=== PATIENT | female | born 1960 | race Caucasian/White ===

== ENCOUNTER 2020-02-03 08:10 | Emergency (ER) | payer OTHER, SELFPAY ==
[2020-02-03 08:17] VITALS: BP 128/69; PULSE 66; RESP 16; TEMP 36.7; O2SAT 99
--- NOTE | 2020-02-03 08:19 | ED.EYEPROB ---
HPI - Eye Problem General Chief complaint: Eye Problems Stated complaint: knot under eye Time Seen by Provider: 02/03/20 08:19 Source: patient and RN notes reviewed History of Present Illness HPI Narrative: Patient is a 59-year-old female presents the urgent care with complaints of a bump on the inside of the left lower eyelid. Patient states that it started last Thursday and she was seen Thursday at [facility] and given bacitracin gel. Patient states that she has been using it as directed but the areas not resolved. Patient states it has not really gotten any worse . States that it seems to be irritated. Denies any changes in vision. Denies any trauma or known injury to the left eye. No other acute complaints. No acute distress noted. Patient read the plan of care. Related Data Allergies Allergy/AdvReac Type Severity Reaction Status Date / Time buspirone Allergy Unknown TONGUE Verified 02/03/20 08:26 SWELLS gabapentin Allergy Unknown Verified 02/03/20 08:26 Review of Systems Review of Systems: Narrative: CONSTITUTIONAL: Denies fever, chills, or sweats. EYES: Reports of a irritated red bump under the lower left eyelid ENT: Denies rhinorrhea, congestion, sore throat, or otalgia. CARDIOVASCULAR: Denies chest pain, palpitations, or edema. RESPIRATORY: Denies cough or dyspnea. GASTROINTESTINAL: Denies abdominal pain, nausea, vomiting, or diarrhea. GENITOURINARY: Denies dysuria or hematuria. SKIN: Denies rash or itching. MUSCULOSKELETAL: Denies back pain, joint pain, or myalgia. NEUROLOGIC: Denies headache, numbness, or weakness. All other systems reviewed are negative, except as documented in HPI. PMFSH Comments At the time of my signature, I reviewed and agree with the nursing past medical, surgical, social, and family history. There is no relevant family history pertinent to the patient complaint. Exam Narrative: Exam Narrative: GENERAL: This is a well-nourished, well-developed patient, in no apparent distress. HEAD: normocephalic, atraumatic. EYES: PERRL. Sclera clear/white. Vision is grossly intact. Mild redness noted to the lower lid of the left eye with a notable inner nodular erythemic hordeolum versus chalazion EARS: External ears normal NOSE: External nose normal with no obvious nasal discharge, THROAT: Mucous membranes moist NECK: Neck supple SKIN: warm, intact with no suspicious lesions or rash, good texture and turgor. NEURO: awake, alert, and oriented to person, place and time. There were no obvious focal neurologic abnormalities. EXTREMITIES: No clubbing, cyanosis, or edema. Course Vital Signs Vital signs: Vital Signs Temperature 98.1 F 02/03/20 08:17 Pulse Rate 66 02/03/20 08:17 Respiratory Rate 16 02/03/20 08:17 Blood Pressure 128/69 02/03/20 08:17 Pulse Oximetry 99 02/03/20 08:17 Temperature 98.1 F 02/03/20 08:17 Pulse Rate 66 02/03/20 08:17 Respiratory Rate 16 02/03/20 08:17 Blood Pressure 128/69 02/03/20 08:17 Pulse Oximetry 99 02/03/20 08:17 reviewed MDM - Eye Problem MDM Narrative Medical decision making narrative: Advised the patient to use eyedrops to the left eye as directed. May stop using the bacitracin gel. Area may take a week to 1 month to resolve. However, be aware of signs and symptoms of worsening condition such as increased redness, swelling, itchiness, drainage from the left eye, changes in vision. If the above symptoms occur?follow-up in the emergency room. Use warm compress several times throughout the day. The area is likely an inner hordeolum/stye versus chalazion. May require further follow-up with an nutritional yeast supervisor. Follow-up with your PCP within 2 to 5 days if her worsening symptoms or failure to improve. Differential Diagnosis Differential diagnosis: Likely corneal abrasion, conjunctivitis, acute iritis, periorbital cellulitis and subconjunctival hemorrhage Critical Care Time Critical Care Time Critical Care Time: No Discharge
== END 2020-02-03 08:35 | disposition home or self-care (01) ==
PROVIDERS: Emergency Provider Nurse Practitioner Family; PCP Internal Medicine
DX: H00.025 Hordeolum internum left lower eyelid (principal)
CPT/HCPCS: 99213; G0463

== ENCOUNTER 2021-08-05 09:56 | Emergency (ER) | payer OTHER, SELFPAY ==
[2021-08-05 10:20] VITALS: BP 108/70; PULSE 81; RESP 18; TEMP 37.4; O2SAT 96
--- NOTE | 2021-08-05 11:30 | ED.URI ---
HPI - URI/Sore Throat General Chief Complaint: Upper Respiratory Infection Stated Complaint: Sore throat, cough, sinus Time Seen by Provider: 08/05/21 11:25 Source: patient and RN notes reviewed Mode of arrival: ambulatory Limitations: no limitations History of Present Illness HPI Narrative: 60-year-old female presents concern for 3-day history of sore throat, sinus drainage, shortness of breath, weakness, coughing, fatigue, low energy. Reports she is taking Zicam and salt water gargles. Reports she has been vaccinated for Covid. She denies any known sick contacts. MD elicited complaint: cough Related Data Home Medications Medication Instructions Recorded Confirmed fluoxetine 40 mg PO BID 08/05/21 08/05/21 ibuprofen 800 mg PO TID 08/05/21 08/05/21 lorazepam 0.5 mg PO BID 08/05/21 08/05/21 omeprazole 20 mg PO DAILY 08/05/21 08/05/21 simvastatin 40 mg PO DAILY 08/05/21 08/05/21 trazodone 50 mg PO HS 08/05/21 08/05/21 Allergies Allergy/AdvReac Type Severity Reaction Status Date / Time buspirone Allergy Unknown TONGUE Verified 08/05/21 10:27 SWELLS gabapentin Allergy Unknown Verified 08/05/21 10:27 Review of Systems Review of Systems: CONSTITUTIONAL: Reports malaise, fatigue. Denies chills, sweats, or fever. EYES: Denies visual changes, redness, or discharge. ENT: Reports rhinorrhea, congestion, sore throat. Denies sinus pain, otalgia CARDIOVASCULAR: Denies chest pain, palpitations, or edema. RESPIRATORY: Reports cough. Denies dyspnea. GASTROINTESTINAL: Denies abdominal pain, nausea, vomiting, diarrhea SKIN: Denies rash or itching. MUSCULOSKELETAL: Reports myalgia. NEUROLOGIC: Denies headache. All systems reviewed & are unremarkable except as noted in HPI and below PMFSH Comments At time of signature, agree with nursing past medical, surgical, social and family history. There is no relevant family history pertinent to the presenting complaint Exam Narrative: GENERAL: Well-appearing, well-nourished, and in no acute distress. HEAD: Normocephalic EYES: PERRLA, conjunctivae clear ENT: Nares clear, clear discharge. Mucous membranes moist. TM pearly harden with dull light reflex bilaterally; no tragal tenderness. Oropharynx erythematous without lesions. Tonsils not enlarged and without exudate, no drooling, no hoarseness, no trismus, uvula midline. NECK: Supple. No lymphadenopathy CHEST: Clear to auscultation, breath sounds equal. No wheezing, rhonchi, rales, or stridor. No respiratory distress, speaks in full sentences. HEART: Regular rate and rhythm. No murmur heard. SKIN: Warm, dry, no rash. NEURO: Alert and oriented x3. PSYCH: Normal mood and affect Course Course Emergency Course: Patient is aware of diagnosis, understands and agrees to treatment plan. Anticipatory guidance given. Patient agrees to follow-up as directed and is aware of reasons to seek care at the emergency department. Portions of this record may have been created with voice recognition software Vital Signs Vital signs: Vital Signs Temperature 99.4 F 08/05/21 10:20 Pulse Rate 81 08/05/21 10:20 Respiratory Rate 18 08/05/21 10:20 Blood Pressure 108/70 08/05/21 10:20 Pulse Oximetry 96 08/05/21 10:20 Temperature 99.4 F 08/05/21 10:20 Pulse Rate 81 08/05/21 10:20 Respiratory Rate 18 08/05/21 10:20 Blood Pressure 108/70 08/05/21 10:20 Pulse Oximetry 96 08/05/21 10:20 Reviewed. MDM - URI/Sore Throat MDM Narrative Medical decision making narrative: Differential diagnosis considered: Chavez virus, strep pharyngitis, allergic rhinitis, upper respiratory tract infection, sinusitis, rhinosinusitis, nasopharyngitis. viral pharyngitis, otitis media, otitis externa, pneumonia, bronchitis, viral cough syndrome, viral syndrome, and influenza. Exam findings show no acute concerns or changes; patient is non-toxic appearing and is in no distress. Patient is appropriate for outpatient treatment and follow-up. Lab Data L
[2021-08-06 20:04] LABS: SARS-CoV-2 RNA PCR Negative
== END 2021-08-05 11:53 | disposition home or self-care (01) ==
PROVIDERS: Emergency Provider Nurse Practitioner
DX: J06.9 Acute upper respiratory infection, unspecified (principal); Z20.822 Contact with and (suspected) exposure to COVID-19; E78.00 Pure hypercholesterolemia, unspecified; J44.9 Chronic obstructive pulmonary disease, unspecified; K21.9 Gastro-esophageal reflux disease without esophagitis; F41.9 Anxiety disorder, unspecified; F32.A Depression, unspecified
CPT/HCPCS: 87081; 87426; 87804; 87880; 99213; C9803; G0463; U0003; U0005

== ENCOUNTER 2023-04-11 16:18 | Emergency (ER) | payer OTHER, SELFPAY ==
[2023-04-11 16:25] VITALS: BP 143/77; PULSE 83; RESP 20; TEMP 37.1; O2SAT 99
--- NOTE | 2023-04-11 16:29 | ED.UPPEXIN ---
HPI - Extremity Injury (Upper) General Chief Complaint: Extremity Injury, Upper Stated Complaint: Skin Sore/Left Arm History of Present Illness HPI narrative: Patient presents with pain to her left upper arm. Patient states she donated plasma yesterday and then noted last night bruising to the insertion site. No redness no edema no drainage from the area. Related Data Home Medications Medication Instructions Recorded Confirmed fluoxetine 40 mg capsule 40 mg PO BID 08/05/21 08/05/21 ibuprofen 800 mg tablet 800 mg PO TID 08/05/21 08/05/21 lorazepam 0.5 mg tablet 0.5 mg PO BID 08/05/21 08/05/21 omeprazole 20 mg capsule,delayed 20 mg PO DAILY 08/05/21 08/05/21 release simvastatin 40 mg tablet 40 mg PO DAILY 08/05/21 08/05/21 trazodone 50 mg tablet 50 mg PO HS 08/05/21 08/05/21 albuterol sulfate 90 mcg/actuation inhalation 04/11/23 aerosol inhaler aripiprazole 10 mg tablet mg 04/11/23 diclofenac sodium 75 mg mg PO 04/11/23 tablet,delayed release hydrocodone 5 mg-acetaminophen 325 tablet 04/11/23 mg tablet lidocaine 5 % topical patch patch 04/11/23 pregabalin 75 mg capsule mg 04/11/23 Allergies Allergy/AdvReac Type Severity Reaction Status Date / Time buspirone Allergy Unknown TONGUE Verified 04/11/23 16:25 SWELLS gabapentin Allergy Unknown Verified 04/11/23 16:25 Review of Systems Review of Systems: CONSTITUTIONAL: Denies fever, chills, or sweats. EYES: Denies visual changes, redness, or discharge. ENT: Denies rhinorrhea, congestion, sore throat, or otalgia. CARDIOVASCULAR: Denies chest pain, palpitations, or edema. RESPIRATORY: Denies cough or dyspnea. GASTROINTESTINAL: Denies abdominal pain, nausea, vomiting, or diarrhea. GENITOURINARY: Denies dysuria or hematuria. SKIN: Denies rash or itching. MUSCULOSKELETAL: Denies back pain, joint pain, or myalgia. NEUROLOGIC: Denies headache, numbness, or weakness. PSYCHIATRIC: Denies anxiety or depression. [facility] Comments At time of signature, agree with nursing past medical, surgical, social and family history. There is no relevant family history pertinent to the presenting complaint Exam Narrative: GENERAL: Well-appearing, well-nourished, and in no acute distress. HEAD: Normocephalic, atraumatic. EYES: PERRLA and EOMI. ENT: Nares clear, no rhinorrhea or epistaxis. Mucous membranes moist. NECK: Supple. CHEST: Clear to auscultation. No respiratory distress. HEART: Regular rate and rhythm. No murmur heard. Normal peripheral pulses. ABDOMEN: Soft, nontender, nondistended, normal active bowel sounds. EXTREMITIES: Normal range of motion. No edema.bruising noted to iv insertion site of left antecubital area. no concern for cellulitis or infection HAND EXAM - Skin intact, no laceration, no swelling, no erythema, normal digit cascade with flexion of fingers, median nerve, ulnar nerve, radial nerve is intact. Normal sensation of each side of each finger, can perform `ok? sign, `cross over finger test of index and middle fingers? and `thumbs up? sign, normal thumb opposition, no scissoring. good capillary refill and radial pulse. normal flexion and extension of fingers and wrist. normal supination at wrist. Normal forearm and elbow exam. SKIN: Warm, dry, no rash. NEURO: No focal deficits. Alert and oriented x3. [place] Coma Scale Eye Opening: Spontaneous 4 [place] Coma Scale Motor: Obeys Commands 6 [place] Coma Scale Verbal: Oriented 5 [place] Coma Scale Total 15 Course Course Level of Care: Express Care Visit Vital Signs Vital signs: Vital Signs Temperature 37.1 C 04/11/23 16:25 Pulse Rate 83 04/11/23 16:25 Respiratory Rate 20 04/11/23 16:25 Blood Pressure 143/77 H 04/11/23 16:25 Pulse Oximetry 99 04/11/23 16:25 Oxygen Delivery Room Air 04/11/23 16:25 Temperature 37.1 C 04/11/23 16:25 Pulse Rate 83 04/11/23 16:25 Respiratory Rate 20 04/11/23 16:25 Blood Pressure 143/77 H 04/11/23 16:25 Pulse Oximetry 9
[2023-04-11 16:31] VITALS: BP 143/77; PULSE 83; RESP 20; TEMP 37.1; O2SAT 99
== END 2023-04-11 16:35 | disposition home or self-care (01) ==
PROVIDERS: Emergency Provider Nurse Practitioner Family; PCP Internal Medicine Infectious Disease
DX: L76.32 Postprocedural hematoma of skin and subcutaneous tissue following other procedure (principal); E78.00 Pure hypercholesterolemia, unspecified; J44.9 Chronic obstructive pulmonary disease, unspecified; K21.9 Gastro-esophageal reflux disease without esophagitis; F41.9 Anxiety disorder, unspecified; F32.A Depression, unspecified
CPT/HCPCS: 99213; G0463